=== PATIENT | male | born 1965 | race Caucasian/White ===

== ENCOUNTER 2017-12-08 13:53 | Inpatient (IN) ==
[2017-12-08] MEDS ORDERED: ENOXAPARIN 100 MG/ML SYRINGE SUBCUT STA (14:17)
[2017-12-08] MEDS ORDERED: ASPIRIN 325 MG TABLET PO STA (14:17)
[2017-12-08 14:33] LABS: Basophils # 0.2 10*3/uL (0.0-0.2); Basophils % 1.2 % (0.0-0.8); Eosinophils # 0.6 10*3/uL (0.0-0.87); Eosinophils % 3.8 % (0.00-10.9); Hematocrit 43.2 VOL% (42.0-52.0); Hemoglobin 14.4 GM/DL (14.0-18.0); Immature Granulocytes % 0.8 %; Immature Granulocytes Absolute 0.12 #; Lymphocytes # 2.9 10*3/uL (1.4-4.0); Lymphocytes % 19.7 % (21.2-54.2); Mean Corpuscular HGB Conc 33.3 GM/DL (32-36); Mean Corpuscular Hemoglobin 31 PG (27-34); Mean Corpuscular Volume 91.5 FL (87-102); Mean Platelet Volume 10.2 FL (9.6-12.0); Monocytes # 1.1 10*3/uL (0.11-0.8); Monocytes % 7.8 % (1.7-12.7); Neutrophils # 9.7 10*3/uL (1.4-7.4); Neutrophils % 66.7 % (38.7-73.9); Platelet Count 318 T/CUMM (130-400); Red Blood Count 4.72 MC/CUMM (3.8-5.5); Red Cell Distribution Width 12.9 % (9.3-17.3); White Blood Count 14.6 T/CUMM (4-12)
[2017-12-08] MEDS ORDERED: ENOXAPARIN 120 MG/0.8 ML SYRINGE SUBCUT ONE (14:36)
[2017-12-08] MEDS ORDERED: ASPIRIN 325 MG TABLET ONE (14:37)
[2017-12-08 14:42] LABS: PT Patient Result 10.7 SECS; Partial Thromboplastin Time 27.4 SECS (0-40)
[2017-12-08 15:09] LABS: Alanine Aminotransferase 29 U/L (16-61); Albumin 3.5 G/DL (3.4-5.0); Alkaline Phosphatase 77 U/L (45-117); Aspartate Amino Transferase 15 U/L (0-37); Bilirubin,Total < 0.39 MG/DL (0.2-1.0); Blood Urea Nitrogen 12 MG/DL (7-18); Calcium 8.8 MG/DL (8.5-10.1); Glucose 128 MG/DL (74-106); Osmolality,Calculated 276.7 MOS/KG (273-304); Potassium 4.6 MMOL/L (3.5-5.1); Sodium 138 MMOL/L (136-145); Total Protein 7.2 G/DL (6.4-8.3)
[2017-12-08] MEDS ORDERED: ONDANSETRON 4 MG/2 ML VIAL IV PRN (16:43)
[2017-12-08] MEDS ORDERED: ACETAMINOPHEN 325 MG TABLET PO PRN (16:43)
[2017-12-08] MEDS ORDERED: POTASSIUM CHLORIDE 20 MEQ TABLET PO PRN ×2 (16:51)
[2017-12-08] MEDS ORDERED: MAGNESIUM SULF RIDER 4 GM in PREMIX 1 EACH IV PRN (16:51)
[2017-12-08] MEDS ORDERED: NITROGLYCERIN SL 0.4 MG TABLET SL PRN (16:51)
[2017-12-08] MEDS ORDERED: ALUM/MAG/SIMETH/LIDO VISC 1:1 30 ML BOTTLE PO PRN (16:51)
[2017-12-08] MEDS ORDERED: MAGNESIUM SULF RIDER 2 GM in PREMIX 1 EACH IV PRN (16:51)
[2017-12-08] MEDS ORDERED: MORPHINE 4 MG/1 ML VIAL IV PRN (16:51)
[2017-12-08] MEDS ORDERED: ENOXAPARIN 40 MG/0.4 ML SYRINGE SUBCUT SCH (21:00)
[2017-12-08] MEDS ORDERED: ATORVASTATIN 20 MG TABLET PO SCH (21:00)
[2017-12-08] MEDS: DOCUSATE SODIUM 100 MG CAPSULE PO SCH (21:08)
[2017-12-08] MEDS: CARVEDILOL 3.125 MG TABLET PO SCH (21:10)
[2017-12-09] MEDS ORDERED: hydroCHLOROthiazide 25 MG TABLET PO SCH (09:00)
[2017-12-09] MEDS ORDERED: ASPIRIN EC 325 MG TABLET PO SCH (09:00)
[2017-12-09] MEDS ORDERED: SAW PALMETTO 1000 MG PO SCH (09:00)
[2017-12-09] MEDS ORDERED: ZINC AMINO ACID CHELATE PO SCH (09:00)
[2017-12-09 09:04] LABS: Basophils # 0.1 10*3/uL (0.0-0.2); Basophils % 0.9 % (0.0-0.8); Eosinophils # 0.7 10*3/uL (0.0-0.87); Hemoglobin 13.5 GM/DL (14.0-18.0); Immature Granulocytes Absolute 0.11 #; Lymphocytes # 3.1 10*3/uL (1.4-4.0); Lymphocytes % 27.3 % (21.2-54.2); Mean Corpuscular HGB Conc 32.9 GM/DL (32-36); Mean Corpuscular Hemoglobin 30 PG (27-34); Mean Corpuscular Volume 92.3 FL (87-102); Mean Platelet Volume 10.1 FL (9.6-12.0); Monocytes # 0.9 10*3/uL (0.11-0.8); Monocytes % 7.6 % (1.7-12.7); Neutrophils # 6.4 10*3/uL (1.4-7.4); Neutrophils % 57.2 % (38.7-73.9); Platelet Count 284 T/CUMM (130-400); Red Blood Count 4.44 MC/CUMM (3.8-5.5); Red Cell Distribution Width 12.9 % (9.3-17.3); White Blood Count 11.2 T/CUMM (4-12)
[2017-12-09 09:24] LABS: Calcium 9.1 MG/DL (8.5-10.1); Osmolality,Calculated 278.4 MOS/KG (273-304); Potassium 4.1 MMOL/L (3.5-5.1); Risk Ratio 5.46; VLDL CHOLESTEROL 33.8 MG/DL
[2017-12-09] MEDS ORDERED: POTASSIUM CHLORIDE RIDER 10 MEQ in PREMIX 1 EACH IV PRN (10:41)
[2017-12-09] MEDS ORDERED: DIAZEPAM 5 MG TABLET PO ONE (10:41)
[2017-12-09] MEDS ORDERED: diphenhydrAMINE CAP 25 MG CAPSULE PO ONE (10:41)
[2017-12-09] MEDS ORDERED: HEPARIN/NACL 0.9% 2 UNITS/ML 1,000 ML IV ONE (10:47)
[2017-12-09] MEDS ORDERED: SODIUM CHLORIDE 0.9% 1,000 ML IV SCH (11:00)
[2017-12-09] MEDS: ASPIRIN EC 325 MG TABLET PO SCH (11:02)
[2017-12-09] MEDS: LISINOPRIL 10 MG TABLET PO SCH (11:02)
[2017-12-09] MEDS: CARVEDILOL 3.125 MG TABLET PO SCH ×2 (11:02→21:32)
[2017-12-09] MEDS ORDERED: VERAPAMIL 5 MG/2 ML VIAL ONE (11:03)
[2017-12-09] MEDS ORDERED: NITROGLYCERIN DRIP 50 MG/250 ML BOTTLE IV ONE (11:03)
[2017-12-09] MEDS ORDERED: MIDAZOLAM 2 MG/2 ML VIAL ONE (11:17)
[2017-12-09] MEDS ORDERED: HYDROmorphone 2 MG/1 ML VIAL ONE (11:17)
[2017-12-09] MEDS ORDERED: ENOXAPARIN 30 MG/0.3 ML SYRINGE ONE (11:29)
[2017-12-09] MEDS: ASCORBIC ACID 500 MG TABLET PO SCH ×2 (12:22→21:30)
[2017-12-09] MEDS: MULTIVITAMIN (CENTRUM) TABLET PO SCH (12:22)
[2017-12-09] MEDS: DOCUSATE SODIUM 100 MG CAPSULE PO SCH ×2 (12:22→21:30)
[2017-12-09] MEDS: PANTOPRAZOLE 40 MG TABLET PO SCH (12:22)
[2017-12-09] MEDS: SODIUM CHLORIDE 0.9% 1,000 ML IV SCH ×2 (12:23→22:46)
[2017-12-09] MEDS ORDERED: ENOXAPARIN 40 MG/0.4 ML SYRINGE SUBCUT SCH (14:00)
[2017-12-09] MEDS: HEPARIN DRIP 25,000 UNITS/500 ML PREMIX IV SCH ×2 (17:01→23:29)
[2017-12-09] MEDS: SKIN HEALING OINT (AQUAPHOR) 50 GM TUBE TOP SCH (18:25)
[2017-12-09] MEDS: ATORVASTATIN 20 MG TABLET PO SCH (21:32)
[2017-12-10 02:16] LABS: Basophils # 0.1 10*3/uL (0.0-0.2); Eosinophils # 0.6 10*3/uL (0.0-0.87); Eosinophils % 5.1 % (0.00-10.9); Hematocrit 39.4 VOL% (42.0-52.0); Hemoglobin 12.8 GM/DL (14.0-18.0); Immature Granulocytes % 0.9 %; Immature Granulocytes Absolute 0.11 #; Lymphocytes # 5.1 10*3/uL (1.4-4.0); Lymphocytes % 42.2 % (21.2-54.2); Mean Corpuscular HGB Conc 32.5 GM/DL (32-36); Mean Corpuscular Hemoglobin 30 PG (27-34); Mean Corpuscular Volume 91.8 FL (87-102); Mean Platelet Volume 9.9 FL (9.6-12.0); Monocytes % 8.3 % (1.7-12.7); Neutrophils # 5.1 10*3/uL (1.4-7.4); Neutrophils % 42.5 % (38.7-73.9); Platelet Count 275 T/CUMM (130-400); Red Blood Count 4.29 MC/CUMM (3.8-5.5); White Blood Count 12.1 T/CUMM (4-12)
[2017-12-10 02:41] LABS: Calcium 8.6 MG/DL (8.5-10.1); Osmolality,Calculated 276.5 MOS/KG (273-304)
[2017-12-10] MEDS: HEPARIN DRIP 25,000 UNITS/500 ML PREMIX IV SCH ×4 (06:33→19:01)
[2017-12-10] MEDS ORDERED: SKIN HEALING OINT (AQUAPHOR) 50 GM TUBE TOP SCH (09:00)
[2017-12-10] MEDS: MULTIVITAMIN (CENTRUM) TABLET PO SCH (09:09)
[2017-12-10] MEDS: LISINOPRIL 10 MG TABLET PO SCH (09:09)
[2017-12-10] MEDS: ASPIRIN EC 325 MG TABLET PO SCH (09:10)
[2017-12-10] MEDS: PANTOPRAZOLE 40 MG TABLET PO SCH (09:10)
[2017-12-10] MEDS: ASCORBIC ACID 500 MG TABLET PO SCH ×2 (09:10→22:35)
[2017-12-10] MEDS: DOCUSATE SODIUM 100 MG CAPSULE PO SCH ×2 (09:10→22:35)
[2017-12-10] MEDS: CARVEDILOL 3.125 MG TABLET PO SCH ×2 (09:11→22:36)
[2017-12-10] MEDS: SKIN HEALING OINT (AQUAPHOR) 50 GM TUBE TOP SCH (12:23)
[2017-12-10] MEDS: ATORVASTATIN 20 MG TABLET PO SCH (22:36)
[2017-12-11] MEDS: HEPARIN DRIP 25,000 UNITS/500 ML PREMIX IV SCH ×4 (01:03→21:06)
[2017-12-11 08:01] LABS: Basophils # 0.1 10*3/uL (0.0-0.2); Basophils % 1.1 % (0.0-0.8); Eosinophils # 0.6 10*3/uL (0.0-0.87); Eosinophils % 5.8 % (0.00-10.9); Hematocrit 37.4 VOL% (42.0-52.0); Hemoglobin 12.2 GM/DL (14.0-18.0); Immature Granulocytes % 1.1 %; Immature Granulocytes Absolute 0.12 #; Lymphocytes # 3.4 10*3/uL (1.4-4.0); Lymphocytes % 32.5 % (21.2-54.2); Mean Corpuscular HGB Conc 32.6 GM/DL (32-36); Mean Corpuscular Hemoglobin 30 PG (27-34); Mean Corpuscular Volume 92.6 FL (87-102); Mean Platelet Volume 10.2 FL (9.6-12.0); Monocytes # 0.8 10*3/uL (0.11-0.8); Monocytes % 7.5 % (1.7-12.7); Neutrophils # 5.5 10*3/uL (1.4-7.4); Platelet Count 270 T/CUMM (130-400); Red Blood Count 4.04 MC/CUMM (3.8-5.5); Red Cell Distribution Width 12.9 % (9.3-17.3); White Blood Count 10.5 T/CUMM (4-12)
[2017-12-11 08:21] LABS: Calcium 8.4 MG/DL (8.5-10.1); Osmolality,Calculated 279.3 MOS/KG (273-304); Potassium 3.8 MMOL/L (3.5-5.1)
[2017-12-11] MEDS: CARVEDILOL 3.125 MG TABLET PO SCH ×2 (09:31→22:30)
[2017-12-11] MEDS: PANTOPRAZOLE 40 MG TABLET PO SCH (09:31)
[2017-12-11] MEDS: SKIN HEALING OINT (AQUAPHOR) 50 GM TUBE TOP SCH (09:32)
[2017-12-11] MEDS: ASPIRIN EC 325 MG TABLET PO SCH (09:32)
[2017-12-11] MEDS: MULTIVITAMIN (CENTRUM) TABLET PO SCH (09:32)
[2017-12-11] MEDS: LISINOPRIL 10 MG TABLET PO SCH (09:32)
[2017-12-11] MEDS: ASCORBIC ACID 500 MG TABLET PO SCH ×2 (09:32→21:13)
[2017-12-11] MEDS: DOCUSATE SODIUM 100 MG CAPSULE PO SCH ×2 (09:32→22:30)
[2017-12-11] MEDS: WARFARIN 10 MG TABLET PO SCH (18:23)
[2017-12-11] MEDS: ATORVASTATIN 20 MG TABLET PO SCH (22:30)
[2017-12-12] MEDS: HEPARIN DRIP 25,000 UNITS/500 ML PREMIX IV SCH ×4 (02:18→22:26)
[2017-12-12 05:21] LABS: Basophils # 0.1 10*3/uL (0.0-0.2); Basophils % 0.8 % (0.0-0.8); Eosinophils # 0.6 10*3/uL (0.0-0.87); Eosinophils % 5.7 % (0.00-10.9); Hematocrit 38.1 VOL% (42.0-52.0); Hemoglobin 12.3 GM/DL (14.0-18.0); Immature Granulocytes Absolute 0.11 #; Lymphocytes # 3.6 10*3/uL (1.4-4.0); Lymphocytes % 33.5 % (21.2-54.2); Mean Corpuscular HGB Conc 32.3 GM/DL (32-36); Mean Corpuscular Hemoglobin 30 PG (27-34); Mean Corpuscular Volume 93.6 FL (87-102); Mean Platelet Volume 10.1 FL (9.6-12.0); Monocytes # 0.8 10*3/uL (0.11-0.8); Monocytes % 7.1 % (1.7-12.7); Neutrophils # 5.6 10*3/uL (1.4-7.4); Neutrophils % 51.9 % (38.7-73.9); Platelet Count 284 T/CUMM (130-400); Red Blood Count 4.07 MC/CUMM (3.8-5.5); White Blood Count 10.7 T/CUMM (4-12)
[2017-12-12 05:22] LABS: INR 1.1; PT Patient Result 11.1 SECS
[2017-12-12 06:03] LABS: Bilirubin,Total 0.4 MG/DL (0.2-1.0); Potassium 3.8 MMOL/L (3.5-5.1); Total Protein 6.6 G/DL (6.4-8.3)
[2017-12-12] MEDS: DOCUSATE SODIUM 100 MG CAPSULE PO SCH ×2 (09:39→20:16)
[2017-12-12] MEDS: MULTIVITAMIN (CENTRUM) TABLET PO SCH (09:39)
[2017-12-12] MEDS: LISINOPRIL 10 MG TABLET PO SCH (09:40)
[2017-12-12] MEDS: ASPIRIN EC 325 MG TABLET PO SCH (09:40)
[2017-12-12] MEDS: CARVEDILOL 3.125 MG TABLET PO SCH ×2 (09:40→20:04)
[2017-12-12] MEDS: ASCORBIC ACID 500 MG TABLET PO SCH ×2 (09:40→20:16)
[2017-12-12] MEDS: PANTOPRAZOLE 40 MG TABLET PO SCH (09:40)
[2017-12-12] MEDS: SKIN HEALING OINT (AQUAPHOR) 50 GM TUBE TOP SCH (09:40)
[2017-12-12] MEDS: WARFARIN 10 MG TABLET PO SCH (18:04)
[2017-12-12] MEDS: ATORVASTATIN 20 MG TABLET PO SCH (20:05)
[2017-12-13] MEDS: HEPARIN DRIP 25,000 UNITS/500 ML PREMIX IV SCH ×3 (04:40→18:13)
[2017-12-13 05:49] LABS: INR 1.2; PT Patient Result 12.1 SECS
[2017-12-13] MEDS: MULTIVITAMIN (CENTRUM) TABLET PO SCH (08:17)
[2017-12-13] MEDS: DOCUSATE SODIUM 100 MG CAPSULE PO SCH ×2 (08:17→21:31)
[2017-12-13] MEDS: ASPIRIN EC 325 MG TABLET PO SCH (08:18)
[2017-12-13] MEDS: ASCORBIC ACID 500 MG TABLET PO SCH ×2 (08:18→21:32)
[2017-12-13] MEDS: PANTOPRAZOLE 40 MG TABLET PO SCH (08:19)
[2017-12-13] MEDS: CARVEDILOL 3.125 MG TABLET PO SCH ×2 (08:20→21:32)
[2017-12-13] MEDS: LISINOPRIL 10 MG TABLET PO SCH (08:26)
[2017-12-13] MEDS: SKIN HEALING OINT (AQUAPHOR) 50 GM TUBE TOP SCH (11:00)
[2017-12-13] MEDS: WARFARIN 10 MG TABLET PO SCH (17:34)
[2017-12-13] MEDS: ATORVASTATIN 20 MG TABLET PO SCH (21:32)
[2017-12-14] MEDS: HEPARIN DRIP 25,000 UNITS/500 ML PREMIX IV SCH ×4 (01:03→17:52)
[2017-12-14 06:08] LABS: Basophils # 0.1 10*3/uL (0.0-0.2); Basophils % 0.9 % (0.0-0.8); Eosinophils # 0.5 10*3/uL (0.0-0.87); Eosinophils % 5.2 % (0.00-10.9); Hematocrit 38.7 VOL% (42.0-52.0); Hemoglobin 12.7 GM/DL (14.0-18.0); Immature Granulocytes % 1.4 %; Immature Granulocytes Absolute 0.15 #; Lymphocytes # 3.6 10*3/uL (1.4-4.0); Lymphocytes % 34.9 % (21.2-54.2); Mean Corpuscular HGB Conc 32.8 GM/DL (32-36); Mean Corpuscular Hemoglobin 31 PG (27-34); Mean Corpuscular Volume 93.5 FL (87-102); Mean Platelet Volume 10.5 FL (9.6-12.0); Monocytes # 0.7 10*3/uL (0.11-0.8); Monocytes % 6.7 % (1.7-12.7); NRBC # 0.02 10*3/uL; Neutrophils # 5.3 10*3/uL (1.4-7.4); Neutrophils % 50.9 % (38.7-73.9); Platelet Count 280 T/CUMM (130-400); Red Blood Count 4.14 MC/CUMM (3.8-5.5); Red Cell Distribution Width 13.2 % (9.3-17.3); White Blood Count 10.4 T/CUMM (4-12)
[2017-12-14 06:16] LABS: INR 1.6; PT Patient Result 16.7 SECS
[2017-12-14 06:21] LABS: Calcium 8.8 MG/DL (8.5-10.1); Potassium 3.9 MMOL/L (3.5-5.1)
[2017-12-14 06:38] LABS: Partial Thromboplastin Time 92.8 SECS (0-40)
[2017-12-14] MEDS: MULTIVITAMIN (CENTRUM) TABLET PO SCH (10:14)
[2017-12-14] MEDS: ASPIRIN EC 325 MG TABLET PO SCH (10:14)
[2017-12-14] MEDS: PANTOPRAZOLE 40 MG TABLET PO SCH (10:14)
[2017-12-14] MEDS: DOCUSATE SODIUM 100 MG CAPSULE PO SCH ×2 (10:14→21:32)
[2017-12-14] MEDS: LISINOPRIL 10 MG TABLET PO SCH (10:14)
[2017-12-14] MEDS: ASCORBIC ACID 500 MG TABLET PO SCH ×2 (10:14→21:32)
[2017-12-14] MEDS: CARVEDILOL 3.125 MG TABLET PO SCH ×3 (10:14→21:31)
[2017-12-14] MEDS: SKIN HEALING OINT (AQUAPHOR) 50 GM TUBE TOP SCH (10:26)
[2017-12-14] MEDS ORDERED: LISINOPRIL 20 MG TABLET PO SCH (11:58)
[2017-12-14] MEDS: WARFARIN 10 MG TABLET PO SCH (18:02)
[2017-12-14] MEDS: ATORVASTATIN 20 MG TABLET PO SCH (21:31)
[2017-12-15 08:16] LABS: Basophils # 0.1 10*3/uL (0.0-0.2); Basophils % 0.9 % (0.0-0.8); Eosinophils # 0.5 10*3/uL (0.0-0.87); Eosinophils % 5.1 % (0.00-10.9); Hematocrit 39.1 VOL% (42.0-52.0); Hemoglobin 12.7 GM/DL (14.0-18.0); Immature Granulocytes % 1.4 %; Immature Granulocytes Absolute 0.14 #; Lymphocytes # 3.2 10*3/uL (1.4-4.0); Lymphocytes % 32.3 % (21.2-54.2); Mean Corpuscular HGB Conc 32.5 GM/DL (32-36); Mean Corpuscular Hemoglobin 30 PG (27-34); Mean Corpuscular Volume 93.1 FL (87-102); Mean Platelet Volume 9.8 FL (9.6-12.0); Monocytes # 0.7 10*3/uL (0.11-0.8); Monocytes % 6.7 % (1.7-12.7); Neutrophils # 5.2 10*3/uL (1.4-7.4); Neutrophils % 53.6 % (38.7-73.9); Platelet Count 291 T/CUMM (130-400); Red Cell Distribution Width 13.4 % (9.3-17.3); White Blood Count 9.8 T/CUMM (4-12)
[2017-12-15 08:35] LABS: INR 2.3
[2017-12-15 08:36] VITALS: BP 140/64
[2017-12-15 09:08] LABS: PT Patient Result 23.2 SECS; Partial Thromboplastin Time 101.5 SECS (0-40)
[2017-12-15 09:12] LABS: Calcium 8.7 MG/DL (8.5-10.1); Osmolality,Calculated 282.1 MOS/KG (273-304); Potassium 3.9 MMOL/L (3.5-5.1)
[2017-12-15 09:14] LABS: Albumin 3.4 G/DL (3.4-5.0); Bilirubin,Total 0.4 MG/DL (0.2-1.0); Calcium 8.8 MG/DL (8.5-10.1); Osmolality,Calculated 282.1 MOS/KG (273-304); Total Protein 6.8 G/DL (6.4-8.3)
[2017-12-15] MEDS: CARVEDILOL 3.125 MG TABLET PO SCH ×2 (09:17→09:23)
[2017-12-15] MEDS: SKIN HEALING OINT (AQUAPHOR) 50 GM TUBE TOP SCH (09:18)
[2017-12-15] MEDS: ASCORBIC ACID 500 MG TABLET PO SCH (09:18)
[2017-12-15] MEDS: DOCUSATE SODIUM 100 MG CAPSULE PO SCH (09:18)
[2017-12-15] MEDS: PANTOPRAZOLE 40 MG TABLET PO SCH ×2 (09:18→09:28)
[2017-12-15] MEDS: MULTIVITAMIN (CENTRUM) TABLET PO SCH (09:18)
[2017-12-15] MEDS: ASPIRIN EC 325 MG TABLET PO SCH (09:18)
== END 2017-12-15 13:15 | disposition home or self-care (01) | DRG 134 ==
LOC: EDBD → EDUNIT# → N.ED 13:53 → N.EDINP 15:30 → SUATTDRO 15:30 → N.TELEN 16:45
PROVIDERS: ADMIT Internal Medicine; ATTEND Internal Medicine
PROC: CLCCHCL (ICD-10-PCS; 2017-12-09 11:45)